=== PATIENT | female | born 1980 | race African-American/Black ===

== ENCOUNTER → 2024-10-31 11:18 | Outpatient (CLI) | payer OTHER, SELFPAY ==
--- NOTE | 2024-10-31 11:35 | DI.RAD.S_ITS ---
PROCEDURE: XR KNEE LT 3V INDICATIONS: REEVALUATION OF KNEE TECHNIQUE: 3 views of the knee were acquired. COMPARISON: None. FINDINGS: Bones: There are no osseous abnormalities. Joints: The tibialfemoral and patellofemoral joints are normal in width and alignment without arthritic change. . Small effusion noted. Soft tissues: Normal IMPRESSION: Small effusion. . Dictated by: Alonso Luke M.D. on 11/01/2024 at 9:11 Approved by: Alonso Luke M.D. on 11/01/2024 at 9:11
--- NOTE | 2024-10-31 11:36 | DI.RAD.S_ITS ---
PROCEDURE: XR KNEE RT 3V INDICATIONS: REEVALUATION OF KNEE TECHNIQUE: 3 views of the knee were acquired. COMPARISON: None. FINDINGS: Bones: There are no osseous abnormalities. Joints: The tibialfemoral and patellofemoral joints show minimal degeneration .. Moderate effusion noted. Soft tissues: Normal IMPRESSION: Moderate patellofemoral effusion. . Minimal degeneration Dictated by: Alonso Luke M.D. on 11/01/2024 at 9:09 Approved by: Alonso Luke M.D. on 11/01/2024 at 9:09
== END ==
PROVIDERS: Referring Provider Chiropractor; Visit Provider Chiropractor
DX: S86.892A Other injury of other muscle(s) and tendon(s) at lower leg level, left leg, initial encounter (principal); S86.891A Other injury of other muscle(s) and tendon(s) at lower leg level, right leg, initial encounter; M25.461 Effusion, right knee; M25.462 Effusion, left knee; X58.XXXA Exposure to other specified factors, initial encounter
CPT/HCPCS: 73562